=== PATIENT | male | born 1985 | race Caucasian/White ===

== ENCOUNTER 2019-03-04 08:11 | Inpatient (IN) | payer OTHER, SELFPAY ==
[~2019-03-04] VITALS: Ht 193 cm; Wt 118.5 kg
[2019-03-04] VITALS (8 sets, daily range): BP systolic 128–156; BP diastolic 72–87; O2SAT 92–96
[2019-03-04] MEDS: NS 1,000 ML IV SCH ×2 (01:32→14:00)
[2019-03-04] MEDS ORDERED: NS 1,000 ML IV ONE ×3 (08:30→10:30)
[2019-03-04 08:48] LABS: BASO # 0.1 10^3/uL (0.0-0.2); BASO % 0.4 % (0.0-1.0); HEMATOCRIT 45.5 % (42.0-52.0); HEMOGLOBIN 15.3 g/dl (13.5-17.5); LYMPH # 0.9 10^3/uL (1.5-5.0); LYMPH % 7.2 % (24.0-44.0); MEAN CORPUSCULAR HEMOGLOBIN 30.7 pg (27.0-33.0); MEAN CORPUSCULAR HGB CONC 33.6 g/dl (32.0-36.5); MEAN CORPUSCULAR VOLUME 91.4 fl (80.0-96.0); MONO # 0.7 10^3/uL (0.0-0.8); MONO % 5.6 % (0.0-5.0); NEUTROPHILS # 10.7 10^3/uL (1.5-8.5); NEUTROPHILS % 86.4 % (36.0-66.0); PLATELET COUNT, AUTOMATED 301 10^3/uL (150-450); RED BLOOD COUNT 4.98 10^6/uL (4.30-6.10); WHITE BLOOD COUNT 12.4 10^3/uL (4.0-10.0)
[2019-03-04] MEDS ORDERED: MORPHINE 4 MG/ML 1ML VIAL/SYRINGE (J2270) IV ONE (08:50)
[2019-03-04 09:27] LABS: ALBUMIN 3.8 GM/DL (3.2-5.2); ALT/SGPT 349 U/L (12-78); BILIRUBIN,DIRECT 6.1 MG/DL (0.0-0.2); BILIRUBIN,TOTAL 7.4 MG/DL (0.2-1.0); BLOOD UREA NITROGEN 10 MG/DL (7-18); CALCIUM LEVEL 9.9 MG/DL (8.5-10.1); CARBON DIOXIDE LEVEL 25 MEQ/L (21-32); CHLORIDE LEVEL 104 MEQ/L (98-107); CREATININE FOR GFR 0.94 MG/DL (0.70-1.30); GLOMERULAR FILTRATION RATE > 60.0 (>60); GLUCOSE, FASTING 139 MG/DL (70-100); POTASSIUM SERUM 3.9 MEQ/L (3.5-5.1); SODIUM LEVEL 137 MEQ/L (136-145); TOTAL PROTEIN 7.3 GM/DL (6.4-8.2)
[2019-03-04 09:28] LABS: LIPASE 15671 U/L (73-393)
[2019-03-04 09:51] LABS: AMYLASE 1696 U/L (25-115)
[2019-03-04] MEDS ORDERED: ISOVUE-370 76% 100ML VIAL (Q9967) As Ordered ONE (10:13)
[2019-03-04] MEDS ORDERED: HYDROMORPHONE HCL 0.5 MG/ 0.5 ML SYRINGE (J1170 PER 1) IV PRN ×2 (11:00→13:15)
--- NOTE | 2019-03-04 11:00 | REP ---
CT ABDOMEN AND PELVIS WITH IV WITHOUT ORAL CONTRAST: HISTORY: Gallstone pancreatitis suspected. No comparison imaging. CT CONTRAST DOSE: 100 mL of intravenous Isovue 370. 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 The lung bases are clear. The gallbladder is distended and shows diffuse gallbladder wall thickening and enhancement consistent with some degree of cholecystitis. Intrahepatic and extrahepatic bile ducts are prominent. The common bile duct measures 12 mm in greatest AP dimension in the pancreatic head. No definite CT evidence of cholelithiasis or choledocholithiasis is seen. There is some swelling in the pancreatic head and peripancreatic soft tissue fat shows infiltration consistent with pancreatitis. No intrapancreatic fluid collection is seen. No adrenal lesion is observed. The spleen is unremarkable. The kidneys enhance symmetrically and are morphologically intact. Both renal arteries are duplicated. A normal appendix is seen. No abdominal wall defect is observed. There is no evidence of ascites. Seminal vesicles, prostate, and urinary bladder are unremarkable. IMPRESSION: There is CT evidence of pancreatitis with intrahepatic and extrahepatic biliary dilation. Gallbladder wall thickening. Consistent with cholecystitis. CBD 1.2 cm. Electronically Signed by Andrés Cha MD 03/04/2019 03:33 P
[2019-03-04] MEDS ORDERED: PIPERACILLIN/TAZOBACTAM SOD 3.375 GM in D5W MINI-BAG PLUS 50 ML IV ONE (11:30)
[2019-03-04 12:15] LABS: APPEARANCE, URINE CLEAR (CLEAR); BACTERIA, URINE AUTO NEGATIVE (NEGATIVE); BILIRUBIN, URINE AUTO 2+ (NEGATIVE); BLOOD, URINE BLOOD NEGATIVE (NEGATIVE); COLOR, URINE AMBER (YELLOW); GLUCOSE, URINE (UA) AUTO NEGATIVE (NEGATIVE); KETONE, URINE AUTO TRACE mg/dL (NEGATIVE); LEUKOCYTE ESTERASE, URINE AUTO NEGATIVE (NEGATIVE); MUCUS, URINE SMALL (NEGATIVE); NITRITE, URINE AUTO NEGATIVE (NEGATIVE); PROTEIN, URINE AUTO NEGATIVE (NEGATIVE); RBC, URINE AUTO 2 /HPF (0-3); SQUAMOUS EPITHELIAL CELL UR AU 0 /HPF (0-6); WBC, URINE AUTO 1 /HPF (0-3)
[2019-03-04 12:32] LABS: SPECIFIC GRAVITY URINE AUTO >1.060 (1.002-1.035)
[2019-03-04] MEDS ORDERED: IBUP200T45 PO (12:57)
--- NOTE | 2019-03-04 13:04 | HPEPDOC ---
[facility] Medical History & Physical Date of Admission Mar 04, 2019 Date of Service: Mar 04, 2019 History and Physical CHIEF COMPLAINT: Abdominal pain HISTORY OF PRESENT ILLNESS: Patient is 33M with no significant PMH presented to the ER with complaints of worsening abdominal pain. Pain started last night initially on the R. side and eventually moved to the L. as well. Pain has been constant an generalized since then, worst in the epigastric region currently. Initial onset 7/10 then worst at 10/10 when lying on the R. side with no relieving factors. No associated symptoms including any fever, chills, nausea or vomiting. Family has also noted that patient had appeared more jaundice as well. He has had several doses of morphine in ER without any relief, subsequently improved after dilaudid was given and now reported to be more comfortable. Denies any other complaints currently apart from epigastric pain. PAST MEDICAL HISTORY: Refer to [facility] PAST SURGICAL HISTORY: None SOCIAL HISTORY: Smokes 6-7 cigarettes/day. Denies alcohol or illicit drug use. FAMILY HISTORY: Mother- DM and HTN ALLERGIES: Please see below. REVIEW OF SYSTEMS: 10 point review of system negative except as stated in [facility] HOME MEDICATIONS: Please see below. PHYSICAL EXAMINATION: General: mild distress, Alert, jaundice Eyes: b/l icterus HENT: Atraumatic, neck supple Cardiovascular: Normal rate, normal rhythm. Pulmonary: Clear to auscultation b/l, no wheezing GI: Soft, nondistended, generalized tenderness worst over epigastric. No rebound tenderness, no abdominal or flank hematoma. Skin: Warm and dry Neuro: CN grossly intact. No focal deficits. Strengths equal b/l. Psych: oriented x 3 LABORATORY DATA: See below. IMAGING: CT abdomen- CT FINDINGS: Digital preliminary communications analyst radiograph is unremarkable. The lung bases are clear. The gallbladder is distended and shows diffuse gallbladder wall thickening and enhancement consistent with some degree of cholecystitis. Intrahepatic and extrahepatic bile ducts are prominent. The common bile duct measures 12 mm in greatest AP dimension in the pancreatic head. No definite CT evidence of cholelithiasis or choledocholithiasis is seen. There is some swelling in the pancreatic head and peripancreatic soft tissue fat shows infiltration consistent with pancreatitis. No intrapancreatic fluid collection is seen. No adrenal lesion is observed. The spleen is unremarkable. The kidneys enhance symmetrically and are morphologically intact. Both renal arteries are duplicated. A normal appendix is seen. No abdominal wall defect is observed. There is no evidence of ascites. Seminal vesicles, prostate, and urinary bladder are unremarkable. IMPRESSION: There is CT evidence of pancreatitis with intrahepatic and extrahepatic biliary dilation. Gallbladder wall thickening. Consistent with cholecystitis. CBD 1.2 cm. MICROBIOLOGY: Please see below. ASSESSMENT AND PLAN: 1. Obstructive pancreatitis - CT scan with evidence of pancreatitis with intrahepatic and extrahepatic biliary dilation and GB distension. Jaundice and icteric. - Suspect gallstone pancreatitis but interestingly, no stones were noted on CT scan however. To obtain abdominal US. - Presented with elevated Lipase 15,600, Total bilirubin 7.4, AST/ALT/ALP 98/349/287. - serum calcium WNL. Obtain lipid panel. No history - GI consulted. Likely ERCP today or tomorrow. - Keep NPO. Pain control. Zofran for nausea. DVT ppx: SCD Code status: Full code Vital Signs Vital Signs Date Time Temp Pulse Resp B/P (MAP) Pulse Ox O2 Delivery O2 Flow Rate FiO2 03/04/19 11:18 18 Room Air 03/04/19 08:19 97.8 60 138/74 (95) 97 Laboratory Data Labs 24H Laboratory Tests 2 03/04/19 08:36: Immature Granulocyte % (Auto) 0.4, Neutrophils (%) (Auto) 86.4H, Lymphocytes (%) (Auto) 7.2L, Monocytes (%) (Auto) 5.6H, Eosinophils (%) (Auto) 0.0, Basophils (%) (Auto) 0.4, Neutrophils # (Auto) 10.7H, Lymphocytes # (Auto) 0.9L, Monocytes # (Auto) 0.7, Eosinophils # (Auto) 0.0, Basophils # (Auto) 0.1, Nucleated Red Blood Cells % (auto) 0.0, Urine Color GINA, Urine Appearance CLEAR, Urine pH 5.0, Urine Specific [place] >1.060H, Urine Protein NEGATIVE, Urine Glucose ( Auto)(UA) NEGATIVE, Urine Ketones (Auto) TRACEH, Urine Blood NEGATIVE, Urine Nitrite NEGATIVE, Urine Bilirubin 2+H, Urine Urobilinogen 4.0H, Urine Leukocyte Esterase (Auto) NEGATIVE, Urine WBC (Auto) 1, Urine RBC (Auto) 2, Urine Hyaline Casts (Auto) 0, Urine Bacteria (Auto) NEGATIVE, Urine Squamous Epithelial Cells 0, Urine Mucus (Auto) SMALL, Urine Sperm (Auto) , Anion Gap 8, Glomerular Filtration Rate > 60.0, Calcium Level 9.9, Total Bilirubin 7.4H, Direct Bilirubin 6.1H, Aspartate Amino Transf (AST/SGOT) 98H, Alanine Aminotransferase (ALT/SGPT) 349H, Alkaline Phosphatase 287H, Total Protein 7.3, Albumin 3.8, Albumin/Globulin Ratio 1.09, Amylase Level 1696H, Lipase 53385V CBC/BMP Laboratory Tests 03/04/19 08:36 Home Medications Scheduled PRN Ibuprofen (Ibu-200) 200 Mg Tablet, 800 MG PO Q6H PRN for PAIN Allergies Coded Allergies: No Known Allergies (Verified Allergy, Unknown, 03/04/19) A-FIB/CHADSVASC A-FIB History Current/History of A-Fib/PAF?: No CHRIS BROWN MD Mar 04, 2019 13:04
[2019-03-04 13:36] LABS: CHOLESTEROL LEVEL 207 MG/DL (<200); CHOLESTEROL RISK RATIO 9.857 (<5); HDL CHOLESTEROL 21 MG/DL (>40); LDL CHOLESTEROL 145 MG/DL (<100); NON-HDL-C 186 MG/DL; TRIGLYCERIDES LEVEL 206 MG/DL (<150)
--- NOTE | 2019-03-04 14:21 | REP ---
RIGHT UPPER QUADRANT SONOGRAPHY: HISTORY: Right upper quadrant pain. Elevated liver function studies. Elevated bilirubin. Comparison CT study March 04, 2019. FINDINGS: Scanning through the right upper quadrant of the abdomen demonstrates a distended gallbladder with diffuse wall thickening, 0.4 cm, and shadowing mobile echogenic gallstones. The CBD is slightly dilated at 0.7 cm. Liver parenchyma is somewhat hyperechoic diffusely correlate with fatty infiltration. No focal liver lesion or intrahepatic ductal dilation is observed. The pancreas is obscured by abdominal gas. There is no evidence of ascites or right renal abnormality. The right kidney measures 12.9 x 5.5 x 4.6 cm. IMPRESSION: Distended thick-walled gallbladder containing stones. CBD 0.7 cm mildly prominent. Electronically Signed by Andrés Cha MD 03/04/2019 03:44 P
[2019-03-04] MEDS: PIPERACILLIN/TAZOBACTAM SOD 3.375 GM in D5W MINI-BAG PLUS 50 ML IV SCH (19:59)
[2019-03-04] MEDS ORDERED: IBUPROFEN 400 MG TAB PO PRN (22:00)
[2019-03-05] VITALS (10 sets, daily range): BP systolic 120–142; BP diastolic 77–86; O2SAT 93–94
[2019-03-05] MEDS: PIPERACILLIN/TAZOBACTAM SOD 3.375 GM in D5W MINI-BAG PLUS 50 ML IV SCH ×4 (01:06→18:30)
[2019-03-05] MEDS: NS 1,000 ML IV SCH ×3 (04:43→18:30)
[2019-03-05 06:02] LABS: HEMOGLOBIN 13.9 g/dl (13.5-17.5); MEAN CORPUSCULAR HEMOGLOBIN 30.2 pg (27.0-33.0); MEAN CORPUSCULAR HGB CONC 33.1 g/dl (32.0-36.5); MEAN CORPUSCULAR VOLUME 91.1 fl (80.0-96.0); PLATELET COUNT, AUTOMATED 258 10^3/uL (150-450); RED BLOOD COUNT 4.61 10^6/uL (4.30-6.10); WHITE BLOOD COUNT 9.8 10^3/uL (4.0-10.0)
[2019-03-05 06:31] LABS: ALBUMIN 2.9 GM/DL (3.2-5.2); ALT/SGPT 263 U/L (12-78); BILIRUBIN,DIRECT 3.6 MG/DL (0.0-0.2); BILIRUBIN,TOTAL 5.5 MG/DL (0.2-1.0); BLOOD UREA NITROGEN 9 MG/DL (7-18); CALCIUM LEVEL 8.5 MG/DL (8.5-10.1); CARBON DIOXIDE LEVEL 25 MEQ/L (21-32); CHLORIDE LEVEL 108 MEQ/L (98-107); CREATININE FOR GFR 0.75 MG/DL (0.70-1.30); GLOMERULAR FILTRATION RATE > 60.0 (>60); GLUCOSE, FASTING 91 MG/DL (70-100); LIPASE 1438 U/L (73-393); POTASSIUM SERUM 3.5 MEQ/L (3.5-5.1); SODIUM LEVEL 139 MEQ/L (136-145); TOTAL PROTEIN 6.7 GM/DL (6.4-8.2)
--- NOTE | 2019-03-05 14:03 | IPNPDOC ---
Date Seen The patient was seen on 03/05/19. Progress Note SUBJECTIVE: Patient reported feeling improvement in abdominal pain today. Still appears jaundice. Leukocytosis resolved. WBC 12.4->9.8 T bili 7.4->5.5 LFTs also trending down. OBJECTIVE PHYSICAL EXAMINATION: General: mild distress, Alert, jaundice Eyes: b/l icterus HENT: Atraumatic, neck supple Cardiovascular: Normal rate, normal rhythm. Pulmonary: Clear to auscultation b/l, no wheezing GI: Soft, nondistended, generalized tenderness worst over epigastric. No rebound tenderness, no abdominal or flank hematoma. Skin: Warm and dry Neuro: CN grossly intact. No focal deficits. Strengths equal b/l. Psych: oriented x 3 LABORATORY DATA: See below. IMAGING: CT abdomen- CT FINDINGS: Digital preliminary speech and language specialist radiograph is unremarkable. The lung bases are clear. The gallbladder is distended and shows diffuse gallbladder wall thickening and enhancement consistent with some degree of cholecystitis. Intrahepatic and extrahepatic bile ducts are prominent. The common bile duct measures 12 mm in greatest AP dimension in the pancreatic head. No definite CT evidence of cholelithiasis or choledocholithiasis is seen. There is some swelling in the pancreatic head and peripancreatic soft tissue fat shows infiltration consistent with pancreatitis. No intrapancreatic fluid collection is seen. No adrenal lesion is observed. The spleen is unremarkable. The kidneys enhance symmetrically and are morphologically intact. Both renal arteries are duplicated. A normal appendix is seen. No abdominal wall defect is observed. There is no evidence of ascites. Seminal vesicles, prostate, and urinary bladder are unremarkable. IMPRESSION: There is CT evidence of pancreatitis with intrahepatic and extrahepatic biliary dilation. Gallbladder wall thickening. Consistent with cholecystitis. CBD 1.2 cm. Abd US- FINDINGS: Scanning through the right upper quadrant of the abdomen demonstrates a distended gallbladder with diffuse wall thickening, 0.4 cm, and shadowing mobile echogenic gallstones. The CBD is slightly dilated at 0.7 cm. Liver parenchyma is somewhat hyperechoic diffusely correlate with fatty infiltration. No focal liver lesion or intrahepatic ductal dilation is observed. The pancreas is obscured by abdominal gas. There is no evidence of ascites or right renal abnormality. The right kidney measures 12.9 x 5.5 x 4.6 cm. IMPRESSION: Distended thick-walled gallbladder containing stones. CBD 0.7 cm mildly prominent. MICROBIOLOGY: Please see below. ASSESSMENT AND PLAN: 1. Obstructive pancreatitis - CT scan with evidence of pancreatitis with intrahepatic and extrahepatic biliary dilation and GB distension. Jaundice and icteric. - Suspect gallstone pancreatitis but interestingly, no stones were noted on CT scan however. - CT scan show 12 mm CBD but US 7mm with - Presented with elevated Lipase 15,600, Total bilirubin 7.4, AST/ALT/ALP 98/349/287. - LFT and lipase trending down. - serum calcium WNL. TG 206. - GI following. Currently planned for ERCP today at this time. Patient to get MRCP. - Stone may have passed? - Keep NPO. Pain control. Zofran for nausea. - surgery consult to evaluate for cholecystectomy. DVT ppx: SCD Code status: Full code VS, I&O, 24H, Fishbone Vital Signs/I&O Vital Signs Date Time Temp Pulse Resp B/P (MAP) Pulse Ox O2 Delivery O2 Flow Rate FiO2 03/05/19 12:00 99.6 81 20 124/77 (93) 94 Room Air I&O- Last 24 Hours up to 6 AM 03/05/19 06:00 Intake Total 3425 ml Output Total 0 ml Balance 3425 ml Laboratory Data 24H LABS Laboratory Tests 2 03/05/19 05:32: Nucleated Red Blood Cells % (auto) 0.0, Anion Gap 6L, Glomerular Filtration Rate > 60.0, Calcium Level 8.5, Total Bilirubin 5.5H, Direct Bilirubin 3.6H, Aspartate Amino Transf (AST/SGOT) 77H, Alanine Aminotransferase (ALT/SGPT) 263H, Alkaline Phosphatase 246H, Total Protein 6.7, Albumin 2.9#L, Albumin/Globulin Ratio 0.76L, Lipase 1438H CBC/BMP Laboratory Tests 03/05/19 05:32 CHRIS BROWN MD Mar 05, 2019 14:03
--- NOTE | 2019-03-05 17:44 | REPVR ---
PROCEDURE INFORMATION: Exam: MR Abdomen Without Contrast Exam date and time: 03/05/2019 4:56 PM Age: 33 years old Clinical history: Abnormal findings; Abnormal radiologic finding of the abdomen; Radiologic exam and body structure: CT abd pelvis; Abdominal tenderness and nausea; Additional info: Cbd stone eval TECHNIQUE: Imaging protocol: MR of the abdomen without contrast. 3D rendering: MIP reconstructed images were created and reviewed. COMPARISON: GALLBLADDER US 03/04/2019 1:03 PM COMPARISON MORE: CT ABD/PEL W/IV CONTRAST ONLY 03/04/2019 10:18:38 AM FINDINGS: Limitations: Lack of intravenous contrast material limits evaluation of the vascular and visceral structures. Liver: Unremarkable as visualized. Gallbladder and bile ducts: Multiple gallstones. Abnormal gallbladder distention. Diffuse gallbladder wall thickening. Stones within the cystic duct. Common bile duct measures up to 4 mm in diameter. Common hepatic duct measures up to 2 mm in diameter. No evidence of choledocholithiasis. Mild pericholecystic edema. Pancreas: Mild peripancreatic edema. No pancreatic ductal dilatation. Spleen: Incompletely imaged. No splenomegaly. Adrenals: Unremarkable. No mass. Kidneys and ureters: Incompletely imaged. Unremarkable as visualized. No hydronephrosis. Stomach and bowel: Unremarkable. Intraperitoneal space: No fluid collection. Arteries: No abdominal aortic aneurysm. Bones/joints: Unremarkable. Soft tissues: Unremarkable. IMPRESSION: 1. Cholelithiasis and cystic duct stones. Abnormal gallbladder distention, diffuse gallbladder wall thickening, and mild pericholecystic fluid. Findings are suggestive of acute cholecystitis. 2. Acute edematous pancreatitis. 3. No evidence of choledocholithiasis. Electronically signed by: Gina Cunha On 03/05/2019 17:44:18 PM
[2019-03-05] MEDS: FLUTICASONE PROP 0.05% NASAL SPRAY 16 GM (FLONASE) NARES SCH (18:30)
[2019-03-05] MEDS ORDERED: MORPHINE 2 MG/ML 1ML VIAL (J2270) IV PRN (19:15)
[2019-03-06] VITALS (7 sets, daily range): BP systolic 117–133; BP diastolic 61–78
[2019-03-06] MEDS: PIPERACILLIN/TAZOBACTAM SOD 3.375 GM in D5W MINI-BAG PLUS 50 ML IV SCH ×5 (00:21→23:59)
[2019-03-06] MEDS: NS 1,000 ML IV SCH ×2 (00:22→09:15)
--- NOTE | 2019-03-06 02:17 | CR.PDOC ---
General Surgery Consultation Date of Consultation 03/06/19 History and Physical CONSULT REPORT FOR: Dr. Johnson (hospitalist service) REASON FOR CONSULTATION: abdominal pain, cholecystitis, pancreatitis HISTORY OF PRESENT ILLNESS: PAST MEDICAL HISTORY: 1. denies any significant chronic medical problems. PAST SURGICAL HISTORY: INCLUDES: 1. none PREVIOUS ANESTHESIA REACTIONS: none ALLERGIES: Please see below. FAMILY HISTORY: noncontributory HOME MEDICATIONS: Please see below. REVIEW OF SYSTEMS: GENERAL: [Denies chills, reports weight gain, reports feeling febrile yesterday]. HEENT: [Denies blurred vision and double vision. Denies ear symptoms. Denies hoarseness]. NECK: Denies any neck pain]. CARDIOVASCULAR: [Denies chest pain and palpitations]. MUSCULOSKELETAL: [Denies arthralgias, back pain and thrombophlebitis]. SKIN: [Denies rash]. NEUROLOGIC: [Denies headache, stroke and transient ischemic attack]. PSYCHIATRIC: [Denies anxiety and depression]. ENDOCRINE: [Denies thyroid disease]. HEMATOLOGY/ONCOLOGY: [Denies bleeding or clotting disorder]. HEART: [Denies any chest pains, palpitations, paroxysmal dyspnea, orthopnea]. PULMONARY: [Denies chronic cough, dyspnea and wheezing]. GASTROINTESTINAL: [Denies rectal bleeding, family history of colon cancer, constipation, diarrhea, dysphagia, heartburn and jaundice]. GENITOURINARY: [Denies dysuria, frequency, hematuria and nocturia]. ENDOCRINE: [Denies polydipsia, polyphagia, polyuria, heat or cold intolerance]. INFECTIOUS: [Denies any recent upper respiratory tract infection, UTI, need for use of antibiotics]. NUTRITION: [Reports good appetite]. PHYSICAL EXAMINATION: VITALS SIGNS: Please see below. GENERAL APPEARANCE:[Patient seen, laying in bed, awake, alert, and oriented. Comfortable, in no acute distress]. SKIN: [Warm and moist]. HEENT: [Normocephalic, atraumatic. [place] palpebral conjunctiva, anicteric sclerae. Lips and mucosa appear moist]. NECK: [Supple, no thyromegaly. No obvious jugular venous distention]. LUNGS: [Clear to auscultation bilaterally. No wheezing appreciated]. HEART: [No chest wall abnormalities. Regular rate and rhythm with no murmurs appreciated]. ABDOMEN: Abdomen is , soft, . [No hepatosplenomegaly. No umbilical or groin herniations, nondistended. No noticeable rebound or guarding. No grimacing with palpation. No rebound tenderness. No masses appreciated]. EXTREMITIES: [Extremities have no deformities. No edema identified] ANCILLARIES: . LABORATORY DATA: Please see below. IMAGING STUDIES: US abdomen Distended thick-walled gallbladder containing stones. CBD 0.[address] scan abdomen and pelvis There is CT evidence of pancreatitis with intrahepatic and extrahepatic biliary dilation. Gallbladder wall thickening. Consistent with cholecystitis. CBD 1.2 cm. MRCP 1. Cholelithiasis and cystic duct stones. Abnormal gallbladder distention, diffuse gallbladder wall thickening, and mild pericholecystic fluid. Findings are suggestive of acute cholecystitis. 2. Acute edematous pancreatitis. 3. No evidence of choledocholithiasis IMPRESSION AND PLAN: Cholelithiasis with acute cholecystitis Biliary acute pancreatitis Vital Signs Vital Signs Date Time Temp Pulse Resp B/P (MAP) Pulse Ox O2 Delivery O2 Flow Rate FiO2 03/06/19 00:00 98.3 84 18 125/65 (85) 96 Room Air I&Os I&O- Last 24 Hours up to 6 AM 03/06/19 06:00 Intake Total 125 ml Output Total 900 ml Balance -775 ml Laboratory Data Labs 24H Laboratory Tests 2 03/05/19 05:32: Nucleated Red Blood Cells % (auto) 0.0, Anion Gap 6L, Glomerular Filtration Rate > 60.0, Calcium Level 8.5, Total Bilirubin 5.5H, Direct Bilirubin 3.6H, Aspartate Amino Transf (AST/SGOT) 77H, Alanine Aminotransferase (ALT/SGPT) 263H, Alkaline Phosphatase 246H, Total Protein 6.7, Albumin 2.9#L, Albumin/Globulin Ratio 0.76L, Lipase 1438H CBC/BMP Laboratory Tests 03/05/19 05:32 Home Medications Scheduled PRN Ibuprofen (Ibu-200) 200 Mg Tablet, 800 MG PO Q6H PRN for PAIN, (Reported) Allergies Coded Allergies: No Known Allergies (Verified Allergy, Unknown, 03/04/19) DAGMAR MIRAMONTES MD Mar 06, 2019 02:17
[2019-03-06 05:51] LABS: HEMATOCRIT 37.1 % (42.0-52.0); HEMOGLOBIN 12.8 g/dl (13.5-17.5); MEAN CORPUSCULAR HEMOGLOBIN 31.2 pg (27.0-33.0); MEAN CORPUSCULAR HGB CONC 34.5 g/dl (32.0-36.5); MEAN CORPUSCULAR VOLUME 90.5 fl (80.0-96.0); PLATELET COUNT, AUTOMATED 235 10^3/uL (150-450); WHITE BLOOD COUNT 10.9 10^3/uL (4.0-10.0)
[2019-03-06 06:13] LABS: ALBUMIN 2.9 GM/DL (3.2-5.2); ALT/SGPT 206 U/L (12-78); BILIRUBIN,DIRECT 1.6 MG/DL (0.0-0.2); BILIRUBIN,TOTAL 3.1 MG/DL (0.2-1.0); BLOOD UREA NITROGEN 9 MG/DL (7-18); CALCIUM LEVEL 8.5 MG/DL (8.5-10.1); CARBON DIOXIDE LEVEL 24 MEQ/L (21-32); CHLORIDE LEVEL 107 MEQ/L (98-107); CREATININE FOR GFR 0.68 MG/DL (0.70-1.30); GLOMERULAR FILTRATION RATE > 60.0 (>60); GLUCOSE, FASTING 77 MG/DL (70-100); POTASSIUM SERUM 3.2 MEQ/L (3.5-5.1); SODIUM LEVEL 139 MEQ/L (136-145); TOTAL PROTEIN 6.9 GM/DL (6.4-8.2)
[2019-03-06] MEDS: FLUTICASONE PROP 0.05% NASAL SPRAY 16 GM (FLONASE) NARES SCH (09:15)
--- NOTE | 2019-03-06 18:02 | IPNPDOC ---
Date Seen The patient was seen on 03/06/19. Progress Note SUBJECTIVE: Patient appeared comfortable and denies pain today. Started on diet and tolerating. T bili and LFT continues to trend down. Jaundice had improved. No acute events reported overnight. OBJECTIVE PHYSICAL EXAMINATION: General: no acute distress, Alert Eyes: EOMI, ABEL HENT: Atraumatic Cardiovascular: Normal rate, normal rhythm. Pulmonary: Clear to auscultation b/l, no wheezing GI: Soft, nondistended, nontender Skin: Warm and dry Neuro: CN grossly intact. No focal deficits. Strengths equal b/l. Psych: oriented x 3 LABORATORY DATA: See below. IMAGING: CT abdomen- CT FINDINGS: Digital preliminary lace and textiles restorer radiograph is unremarkable. The lung bases are clear. The gallbladder is distended and shows diffuse gallbladder wall thickening and enhancement consistent with some degree of cholecystitis. Intrahepatic and extrahepatic bile ducts are prominent. The common bile duct measures 12 mm in greatest AP dimension in the pancreatic head. No definite CT evidence of cholelithiasis or choledocholithiasis is seen. There is some swelling in the pancreatic head and peripancreatic soft tissue fat shows infiltration consistent with pancreatitis. No intrapancreatic fluid collection is seen. No adrenal lesion is observed. The spleen is unremarkable. The kidneys enhance symmetrically and are morphologically intact. Both renal arteries are duplicated. A normal appendix is seen. No abdominal wall defect is observed. There is no evidence of ascites. Seminal vesicles, prostate, and urinary bladder are unremarkable. IMPRESSION: There is CT evidence of pancreatitis with intrahepatic and extrahepatic biliary dilation. Gallbladder wall thickening. Consistent with cholecystitis. CBD 1.2 cm. Abd US- FINDINGS: Scanning through the right upper quadrant of the abdomen demonstrates a distended gallbladder with diffuse wall thickening, 0.4 cm, and shadowing mobile echogenic gallstones. The CBD is slightly dilated at 0.7 cm. Liver parenchyma is somewhat hyperechoic diffusely correlate with fatty infiltration. No focal liver lesion or intrahepatic ductal dilation is observed. The pancreas is obscured by abdominal gas. There is no evidence of ascites or right renal abnormality. The right kidney measures 12.9 x 5.5 x 4.6 cm. IMPRESSION: Distended thick-walled gallbladder containing stones. CBD 0.7 cm mildly prominent. MICROBIOLOGY: Please see below. ASSESSMENT AND PLAN: 1. Obstructive pancreatitis - Presented with elevated Lipase 15,600, Total bilirubin 7.4, AST/ALT/ALP 98/349/287. - LFT and lipase trending down. - serum calcium WNL. TG 206. - No evidence of choledocholithiasis on MRCP. No plan for ERCP at this time. - Resume diet. Surgery consulted, likely will get cholecystectomy as outpatient once LFTs normalize. - Pain control. Zofran for nausea. DVT ppx: SCD Code status: Full code VS, I&O, 24H, Fishbone Vital Signs/I&O Vital Signs Date Time Temp Pulse Resp B/P (MAP) Pulse Ox O2 Delivery O2 Flow Rate FiO2 03/06/19 16:00 98.4 68 18 118/72 (87) 97 Room Air I&O- Last 24 Hours up to 6 AM 03/06/19 06:00 Intake Total 1525 ml Output Total 900 ml Balance 625 ml Laboratory Data 24H LABS Laboratory Tests 2 03/06/19 05:15: Nucleated Red Blood Cells % (auto) 0.0, Anion Gap 8, Glomerular Filtration Rate > 60.0, Calcium Level 8.5, Total Bilirubin 3.1H, Direct Bilirubin 1.6H, Aspartate Amino Transf (AST/SGOT) 69H, Alanine Aminotransferase (ALT/SGPT) 206H, Alkaline Phosphatase 207H, Total Protein 6.9, Albumin 2.9L, Albumin/Globulin Ratio 0.73L CBC/BMP Laboratory Tests 03/06/19 05:15 CHRIS BROWN MD Mar 06, 2019 18:02
[2019-03-07 04:00] VITALS: BP 128/78
[2019-03-07 05:39] LABS: HEMATOCRIT 41.2 % (42.0-52.0); HEMOGLOBIN 13.3 g/dl (13.5-17.5); MEAN CORPUSCULAR HEMOGLOBIN 30.6 pg (27.0-33.0); MEAN CORPUSCULAR HGB CONC 32.3 g/dl (32.0-36.5); MEAN CORPUSCULAR VOLUME 94.7 fl (80.0-96.0); PLATELET COUNT, AUTOMATED 223 10^3/uL (150-450); RED BLOOD COUNT 4.35 10^6/uL (4.30-6.10); WHITE BLOOD COUNT 8.7 10^3/uL (4.0-10.0)
[2019-03-07] MEDS: PIPERACILLIN/TAZOBACTAM SOD 3.375 GM in D5W MINI-BAG PLUS 50 ML IV SCH ×2 (05:46→12:15)
[2019-03-07 05:59] LABS: ALBUMIN 2.7 GM/DL (3.2-5.2); ALT/SGPT 168 U/L (12-78); BILIRUBIN,DIRECT 0.8 MG/DL (0.0-0.2); BILIRUBIN,TOTAL 1.5 MG/DL (0.2-1.0); BLOOD UREA NITROGEN 8 MG/DL (7-18); CALCIUM LEVEL 8.9 MG/DL (8.5-10.1); CARBON DIOXIDE LEVEL 27 MEQ/L (21-32); CHLORIDE LEVEL 110 MEQ/L (98-107); CREATININE FOR GFR 0.65 MG/DL (0.70-1.30); GLOMERULAR FILTRATION RATE > 60.0 (>60); GLUCOSE, FASTING 97 MG/DL (70-100); POTASSIUM SERUM 3.5 MEQ/L (3.5-5.1); SODIUM LEVEL 142 MEQ/L (136-145)
[2019-03-07 08:00] VITALS: BP 117/62
[2019-03-07] MEDS: FLUTICASONE PROP 0.05% NASAL SPRAY 16 GM (FLONASE) NARES SCH (08:32)
--- NOTE | 2019-03-07 09:10 | IPN ---
DATE: 03/07/2019 Mahamed is here with biliary stone pancreatitis which is resolving. He spontaneously passed a biliary stone. His MRCP is negative. His enzymes are all improving. His appetite is better. He is looking forward to discharge. He is afebrile. Vital signs are stable. Lungs clear. Heart regular rhythm. Abdomen soft, nontender. No peripheral edema. Labs: Potassium 3.5, creatinine 0.6, bilirubin down to 1.5, alkaline phosphatase down to 1.82. CBC is unremarkable. White count 8.7. IMPRESSION: Biliary stone pancreatitis. PLAN: Continue the Zosyn for now. He is taking a regular diet. If his labs look better tomorrow, we could possibly discharge. Dr. Banks has seen him already and plans outpatient evaluation for a cholecystectomy.
[2019-03-07] MEDS ORDERED: KEFL500C17 PO (10:55)
--- NOTE | 2019-03-07 11:56 | IPN ---
DATE: 03/04/2019 After rounds, Mahamed decided he wanted to be discharged. His mother wanted him to go home as well. I met with them and addressed my concern about his being discharged with abnormal liver function tests, which are trending down but still not normalized. I advised another day of IV antibiotics. They declined this and they accepted the risks associated with this. The patient will be discharged on Keflex 500 mg every 8 hours times seven days, Tylenol as needed for pain. Followup with Dr. Banks as an outpatient. The hospitalist secretaries will arrange primary care provider.
[2019-03-07 12:00] VITALS: BP 124/60
--- NOTE | 2019-03-10 16:41 | DSES ---
DATE OF ADMISSION: 03/04/2019 DATE OF DISCHARGE: 03/07/2019 PRINCIPAL DIAGNOSIS: Pancreatitis secondary to biliary stone. HISTORY: Mahamed Kee was admitted with pancreatitis. Details as per history and physical on admission. HOSPITAL COURSE: He was admitted to a medical bed, started on Zosyn. He had gallbladder ultrasound on admission that showed distended gallbladder containing stones, common bile duct mildly prominent. Abdominal MRI scan showed no choledocholithiasis. He had cholelithiasis and cystic duct stones and acute edematous pancreas. His enzymes were falling on a daily basis, and I expected he was going to stay until 03/08/2019, but he insisted on discharge on 03/07/2019 after discussion of risks, which he and his mother accepted. His labs have already been dictated. DISPOSITION: He was discharged home against medical advice. He will followup with his primary care provider in a week. His medication was Keflex 500 mg three times a day for 7 days and continue ibuprofen for pain. Activity as tolerated. Diet as tolerated.
== END 2019-03-07 15:41 | disposition home or self-care (01) ==
LOC: EDBD 08:11 → M ED 08:11 → M ED INP 12:23 → M PCU 18:50
PROVIDERS: ADMIT Student in an Organized Health Care Education/Training Program; ATTEND Student in an Organized Health Care Education/Training Program
DX: K80.20 Calculus of gallbladder without cholecystitis without obstruction (principal); K85.90 Acute pancreatitis without necrosis or infection, unspecified; F17.210 Nicotine dependence, cigarettes, uncomplicated

== ENCOUNTER 2019-03-12 03:34 | Observation (INO) | payer MEDICAID ==
[~2019-03-12] VITALS: Ht 193 cm; Wt 116.1 kg
[~2019-03-12 03:34] MED LIST: IBUP200T45 PO; KEFL500C17 PO
[2019-03-12 04:30] LABS: BASO # 0.1 10^3/uL (0.0-0.2); BASO % 0.8 % (0.0-1.0); EOS # 0.1 10^3/uL (0.0-0.5); HEMATOCRIT 45.5 % (42.0-52.0); LYMPH # 1.9 10^3/uL (1.5-5.0); LYMPH % 18.7 % (24.0-44.0); MEAN CORPUSCULAR HEMOGLOBIN 30.2 pg (27.0-33.0); MEAN CORPUSCULAR VOLUME 91.7 fl (80.0-96.0); MONO # 0.6 10^3/uL (0.0-0.8); MONO % 6.1 % (0.0-5.0); NEUTROPHILS # 7.5 10^3/uL (1.5-8.5); PLATELET COUNT, AUTOMATED 363 10^3/uL (150-450); RED BLOOD COUNT 4.96 10^6/uL (4.30-6.10); WHITE BLOOD COUNT 10.2 10^3/uL (4.0-10.0)
[2019-03-12 05:03] LABS: ALBUMIN 3.7 GM/DL (3.2-5.2); BILIRUBIN,DIRECT 1.2 MG/DL (0.0-0.2); BILIRUBIN,TOTAL 1.8 MG/DL (0.2-1.0); TOTAL PROTEIN 8.1 GM/DL (6.4-8.2)
[2019-03-12] MEDS ORDERED: KETOROLAC 30 MG/ML VIAL (J1885) IV ONE (05:30)
--- NOTE | 2019-03-12 07:45 | REP ---
Clinical: Right upper quadrant pain. Technique: Real time reeder scale ultrasound examination using curved array transducer. Findings: Gallbladder is moderately distended and demonstrates multiple mobile gallstones. No pericholecystic fluid is appreciated. The common bile duct is upper limits of normal at 7 mm diameter. Liver and visualized pancreas are normal in contour, size, echogenicity without focal hepatic or pancreatic lesion identified. Right kidney is normal in reniform shape without hydronephrosis and measures 12.2 x 4.6 x 5.0 cm. Impression: Cholelithiasis. Findings are equivocal for acute cholecystitis and require correlation and observation. Electronically Signed by Alan Aguilar MD 03/12/2019 07:37 A
[2019-03-12] MEDS ORDERED: CEPH500C PO (09:10)
[2019-03-12] MEDS ORDERED: LR 1,000 ML IV SCH (09:59)
[2019-03-12] MEDS ORDERED: NORCO, ANEXSIA 5/325MG TABLET (HYDROcodone/ACETAMINOPHEN) PO PRN (10:00)
[2019-03-12] MEDS ORDERED: ONDANSETRON 4MG/2ML VIAL (J2405) IV PRN (10:00)
[2019-03-12] MEDS ORDERED: ACETAMINOPHEN TAB 650MG DOSE (2X325MG) PO PRN (10:00)
[2019-03-12] MEDS ORDERED: KETOROLAC 30 MG/ML VIAL (J1885) IV PRN (10:00)
[2019-03-12 10:25] VITALS: BP 120/66
[2019-03-12 14:00] VITALS: BP 120/67
[2019-03-12 16:15] LABS: ALBUMIN 3.3 GM/DL (3.2-5.2); BILIRUBIN,DIRECT 0.9 MG/DL (0.0-0.2); BILIRUBIN,TOTAL 1.3 MG/DL (0.2-1.0); TOTAL PROTEIN 7.4 GM/DL (6.4-8.2)
[2019-03-12 18:00] VITALS: BP 118/65
--- NOTE | 2019-03-13 13:41 | IPN ---
DATE: 03/12/2019 HISTORY: The patient presented to the emergency department (ED) this morning with an upper abdominal pain. He has cholelithiasis and had recently been admitted with presumed choledocholithiasis resulting in elevated liver function tests and biliary pancreatitis. He was discharged on 03/07/2019 on Keflex for antibiotic coverage and is scheduled for a laparoscopic cholecystectomy on 03/21/[address] Banks. Because his liver function tests (LFTs) were still elevated this morning, he was placed on observation status to see if his pain would resolve and to follow his LFTs. Vital signs show that he has been afebrile since placement on observation with a pulse in the 50s to 60, and his blood pressure is excellent. INTAKE AND OUTPUT: Intake and output. He has been taking some clear liquids without difficulty. He has had no nausea or vomiting. PHYSICAL EXAM: The patient reports that he has no pain at this time. He is lying quietly on the hospital bed looking comfortable. Heart and lung exam is unremarkable. The abdomen is mildly obese but soft and nontender. LABORATORY STUDIES: His liver function tests were repeated this afternoon and show a total bilirubin of 1.3, direct of 0.9, AST of 262, ALT of 322, and an alkaline phosphatase of 441. His total and direct bilirubin are both down slightly and the liver enzymes are about the same. IMPRESSION: The patient has still an elevation of his liver function tests, though his pain has resolved. It may be that he has a remaining common bile duct stone, though he had a magnetic resonance cholangiopancreatography (MRCP) when he was in the hospital last week that showed no evidence of choledocholithiasis. I suspect he has a small stone or stones. It may be that his stone has passed and his liver function tests have just not returned toward normal yet. PLAN: I discussed with the patient the option of staying in the hospital to continue observation of his liver function tests and advance his diet. It may be that we would be able to proceed with surgery at an earlier date than scheduled if he remained in the hospital. Unfortunately, we do not have a bolt sorter available right at this time given the holiday for an endoscopic retrograde cholangiopancreatography (ERCP) if that became necessary. We discussed the risks of recurrent pancreatitis or cholangitis if he has a persisting stone. It may be that he will tolerate a relatively bland or low-fat diet well and not have any return of his discomfort. After some discussion, he has elected to go home and I will discharge him tonight. I told him that I would check with Dr. Banks on 03/17/2019, to see if he has any recommended changes in the plan for surgery next Sunday. The patient was counseled that if he has a return of significant pain or notes any other problems he should return to emergency department for possible readmission. DANA
--- NOTE | 2019-03-13 15:02 | HPE ---
DATE OF ADMISSION: 03/12/2019 REASON FOR PLACEMENT ON OBSERVATION: Upper abdominal pain with elevated liver function tests. HISTORY OF THE PRESENT ILLNESS: The patient is a pleasant, 33-year-old who was admitted to the hospital on 03/04/2019 with abdominal pain with jaundice and marked elevation of his liver function tests. He was found to have a markedly elevated amylase and lipase at 1700 and 16,000, respectively. His liver function tests gradually returned toward normal but had not returned to normal at the time of his discharge. He did have an magnetic resonance cholangiopancreatography (MRCP) that was interpreted as showing no evidence of choledocholithiasis. He was discharged to followup with Dr. Banks and apparently is scheduled for a laparoscopic cholecystectomy on 03/21/2019. The patient reports that he was feeling okay and eating well. He is taking Keflex as ordered at discharge. The patient reports that at about 11 o'clock in the evening on 03/11/2019 he noted the onset again of some right upper quadrant and epigastric pain. This was fairly sudden and quite severe. He initially monitored this at home but then presented to the emergency department in the bolt threader hours of 03/12/2019. On laboratory studies, he was found to have a total bilirubin of 1.8, direct of 1.2, AST 233, ALT 244, and alkaline phosphatase of 469. He continued to have some right upper quadrant discomfort and I was consulted and he is now placed on observation status. MEDICATIONS: The patient's only medication was the Keflex 500 mg three times daily and he has been using some ibuprofen as needed basis for pain. ALLERGIES: The patient has NO KNOWN DRUG ALLERGIES. SURGICAL HISTORY: Negative. MEDICAL HISTORY: Shows no chronic or active medical issues other than the recent gallstone issues. FAMILY HISTORY: His mother apparently has diabetes and hypertension. SOCIAL HISTORY: The patient does smoke about a third of a pack of cigarettes a day, but denies any alcohol or drug use. His review of systems reveals no history of chest pain or palpitations. He has no cough, wheezing or sputum production. He has not noticed any significant weight gain or weight loss. He denies fevers or chills. He has not noticed any jaundice at this time. He denies any urinary issues or any orthopedic issues. PHYSICAL EXAMINATION: Reveals a young man lying quietly on the hospital bed. He is alert and oriented. He has been most recently afebrile. His pulse since presentation has been in the 50s to 60 and his blood pressure is good. Skin is warm and dry. Sclerae are anicteric. Mucous membranes are moist. The neck is supple without mass or bruit. Heart exam shows a regular rate and rhythm. The lungs are clear. Abdomen is perhaps mildly obese. He has bowel sounds present. There is no tympany to percussion and no tenderness to percussion. The abdomen is soft throughout and there is no significant tenderness noted on abdominal exam. He has no evidence of hernia. Lower extremities are without edema and he has palpable radial and pedal pulses. His laboratory studies from the emergency department showed a white count of 10 with a differential showing 73% neutrophils, 19% lymphocytes and 6% monocytes. Hemoglobin 15 with a hematocrit of 46 and platelet count was 363. Liver function tests are as noted in the history of the present illness, and his electrolytes are otherwise significant only for a slight elevation of the glucose 238. Imaging included a gallbladder ultrasound done in the emergency department. This revealed a moderately distended gallbladder with multiple mobile stones. There was no pericholecystic fluid. The common bile duct was reported to be 7 mm in diameter. IMPRESSION: The patient is a 33-year-old man with known gallstones who was in the hospital and discharged 5 days ago with markedly elevated liver function tests with obstructive jaundice and elevations of his amylase and lipase. His numbers had not returned to normal by the time he left the hospital, though an MRCP showed no evidence of choledocholithiasis. He now presents with a recurrence of his pain with elevated liver function tests. Currently, he reports no pain. He has had no nausea or vomiting. I think it is most likely that he has a common bile duct stone that he has either just past, which caused the pain, or perhaps it is still within his common bile duct and has not passed through completely. PLAN: The patient will be placed on observation. His pain has resolved but his liver function tests are troubling as the possibility of persistent choledocholithiasis. He was counseled that we would keep him and recheck his liver function tests at 4 o'clock in the afternoon, which would be 12 hours from the admission labs, to see if these are going up or down or staying the same. We can decide if they are worsening to repeat his MRI. We do not have gastroenterology coverage today. The patient is already scheduled for a cholecystectomy on 03/21/2019, but we will need to sort out whether he has common duct stones that would need to be treated as well. The patient was counseled for the placement on observation and is agreeable. I will check back with him later in the day after his repeat LFTs are available.
== END 2019-03-12 19:30 | disposition home or self-care (01) ==
LOC: M ED 03:34 → M ED INP 03:35 → M MSPAV 10:42
PROVIDERS: ADMIT Surgery; ATTEND Surgery
DX: R94.5 Abnormal results of liver function studies (principal); R10.10 Upper abdominal pain, unspecified; K80.10 Calculus of gallbladder with chronic cholecystitis without obstruction; Z79.2 Long term (current) use of antibiotics; F17.210 Nicotine dependence, cigarettes, uncomplicated
CPT/HCPCS: 36415; 76705; 80047; 80076; 83690; 85025; 93041; 96374; 99285; J1885

== ENCOUNTER 2019-03-16 05:01 | Emergency (ER) | payer MEDICAID ==
[~2019-03-16] VITALS: Ht 193 cm; Wt 118.2 kg
[~2019-03-16 05:01] MED LIST changes: +CEPH500C PO
[2019-03-16] MEDS ORDERED: MORPHINE 4 MG/ML 1ML VIAL/SYRINGE (J2270) IV ONE (05:30)
[2019-03-16] MEDS ORDERED: NS 1,000 ML IV ONE ×2 (05:30→08:30)
[2019-03-16 05:50] LABS: BASO # 0.1 10^3/uL (0.0-0.2); BASO % 0.5 % (0.0-1.0); EOS % 0.2 % (0.0-3.0); HEMATOCRIT 47.4 % (42.0-52.0); HEMOGLOBIN 15.7 g/dl (13.5-17.5); LYMPH % 8.7 % (24.0-44.0); MEAN CORPUSCULAR HEMOGLOBIN 30.3 pg (27.0-33.0); MEAN CORPUSCULAR HGB CONC 33.1 g/dl (32.0-36.5); MEAN CORPUSCULAR VOLUME 91.5 fl (80.0-96.0); MONO # 0.3 10^3/uL (0.0-0.8); NEUTROPHILS # 9.9 10^3/uL (1.5-8.5); NEUTROPHILS % 87.2 % (36.0-66.0); PLATELET COUNT, AUTOMATED 304 10^3/uL (150-450); RED BLOOD COUNT 5.18 10^6/uL (4.30-6.10); WHITE BLOOD COUNT 11.4 10^3/uL (4.0-10.0)
[2019-03-16 06:43] LABS: ALBUMIN 3.2 GM/DL (3.2-5.2); ALT/SGPT 851 U/L (12-78); BILIRUBIN,DIRECT 4.3 MG/DL (0.0-0.2); BILIRUBIN,TOTAL 5.3 MG/DL (0.2-1.0); BLOOD UREA NITROGEN 14 MG/DL (7-18); CALCIUM LEVEL 8.4 MG/DL (8.5-10.1); CARBON DIOXIDE LEVEL 23 MEQ/L (21-32); CHLORIDE LEVEL 110 MEQ/L (98-107); CREATININE FOR GFR 0.78 MG/DL (0.70-1.30); GLOMERULAR FILTRATION RATE > 60.0 (>60); GLUCOSE, FASTING 133 MG/DL (70-100); LIPASE 28872 U/L (73-393); SODIUM LEVEL 142 MEQ/L (136-145); TOTAL PROTEIN 6.8 GM/DL (6.4-8.2)
[2019-03-16 09:21] VITALS: BP 124/77
== END 2019-03-16 09:24 | disposition short-term general hospital (02) ==
LOC: M ED 05:01
DX: K85.10 Biliary acute pancreatitis without necrosis or infection (principal); K81.0 Acute cholecystitis
CPT/HCPCS: 80048; 80076; 83605; 83690; 85025; 96361; 96374; 99284; J2270

== ENCOUNTER 2019-03-21 09:30 | Day surgery (SDC) | payer MEDICAID ==
[2019-03-21] VITALS (8 sets, daily range): BP systolic 117–131; BP diastolic 66–77
[~2019-03-21] VITALS: Ht 193 cm; Wt 110.7 kg
[~2019-03-21 09:30] MED LIST changes: +AMPICILLIN SOD/SULBACTAM SOD 3 GM in D5W MINI-BAG PLUS 100 ML IV ONE; +LR 1,000 ML IV ONE
[2019-03-21] MEDS ORDERED: CONRAY-60 60% 50ML VIAL (Q9961) As Ordered ONE ×3 (11:06→14:07)
[2019-03-21] MEDS ORDERED: LIDOCAINE 1% SDV INJ 30 ML VIAL As Ordered ONE (11:06)
[2019-03-21] MEDS ORDERED: BUPIVACAINE HCL 0.25% 30 ML VIAL As Ordered ONE (11:06)
[2019-03-21] MEDS ORDERED: fentaNYL 250 MCG/5 ML INJECTION (J3010) As Ordered ONE (11:21)
[2019-03-21] MEDS ORDERED: SUGAMMADEX SODIUM 500 MG/5 ML VIAL (BRIDION) As Ordered ONE (11:21)
[2019-03-21] MEDS ORDERED: PROPOFOL 200 MG/20 ML VIAL As Ordered ONE (11:21)
[2019-03-21] MEDS ORDERED: LIDOCAINE 2% INJ 100 MG/5 ML SDV (FOR ANES.) As Ordered ONE (11:21)
[2019-03-21] MEDS ORDERED: dexameTHASONE 4 MG/ML 1ML VIAL (J1100) As Ordered ONE (11:21)
[2019-03-21] MEDS ORDERED: KETOROLAC 60 MG/2 ML VIAL (J1885) As Ordered ONE (11:21)
[2019-03-21] MEDS ORDERED: ROCURONIUM BROMIDE 50 MG/5 ML VIAL As Ordered ONE ×3 (11:21→14:49)
[2019-03-21] MEDS ORDERED: MIDAZOLAM INJ 2 MG/2 ML VIAL (J2250) As Ordered ONE (11:21)
[2019-03-21 11:41] LABS: BILIRUBIN,DIRECT 0.8 MG/DL (0.0-0.2); BILIRUBIN,TOTAL 1.4 MG/DL (0.2-1.0); TOTAL PROTEIN 8.2 GM/DL (6.4-8.2)
[2019-03-21] MEDS ORDERED: ONDANSETRON 4MG/2ML VIAL (J2405) As Ordered ONE (11:49)
[2019-03-21] MEDS ORDERED: MORPHINE 10 MG/ML 1ML VIAL (J2270) As Ordered ONE (13:32)
[2019-03-21] MEDS ORDERED: GLUCAGON FOR INJ 1 MG VIAL (J1610) As Ordered ONE (13:50)
[2019-03-21] MEDS ORDERED: BUPIVACAINE LIPOSOME/PF 1.3% 20ML VIAL (13.3MG/ML)(EXPAREL)(C9290 PER1MG) As Ordered ONE (14:54)
--- NOTE | 2019-03-21 15:16 | REP ---
INTRAOPERATIVE CHOLANGIOGRAM: Single view from intraoperative cholangiogram is performed. Contrast is injected into the biliary system. Cystic duct remnant is visualized. Common bile duct does not appear to be dilated and is fairly well opacified with no evidence of stricture or filling defect. There is free flow of contrast into the duodenum through the ampulla of Vater. Fluoroscopy time 2 minutes 17 seconds. Electronically Signed by Antonino Gonzalez MD 03/21/2019 03:57 P
[2019-03-21] MEDS ORDERED: LR 1,000 ML IV SCH ×2 (15:39→15:45)
[2019-03-21] MEDS ORDERED: PERCOCET PO (15:44)
[2019-03-21] MEDS ORDERED: fentaNYL 100 MCG/2 ML INJECTION (J3010) IV PRN (15:45)
[2019-03-21] MEDS ORDERED: METOCLOPRAMIDE INJ 10MG/2ML VIAL (J2765) IV PRN (15:45)
[2019-03-21] MEDS ORDERED: ONDANSETRON 4MG/2ML VIAL (J2405) IV PRN ×2 (15:45)
[2019-03-21] MEDS ORDERED: ACETAMINOPHEN TAB 650MG DOSE (2X325MG) PO PRN (15:45)
[2019-03-21] MEDS ORDERED: PERCOCET 5MG/325MG TAB PO PRN ×3 (15:45)
[2019-03-21] MEDS: CelecoXIB (CeleBREX) 100 MG CAP PO SCH (17:20)
[2019-03-21] MEDS ORDERED: AMPICILLIN SOD/SULBACTAM SOD 3 GM in D5W MINI-BAG PLUS 100 ML IV SCH (18:00)
[2019-03-22 02:00] VITALS: BP 121/71
[2019-03-22 06:00] VITALS: BP 119/69
[2019-03-22 06:15] LABS: ALBUMIN 3.3 GM/DL (3.2-5.2); ALT/SGPT 149 U/L (12-78); BILIRUBIN,DIRECT 0.5 MG/DL (0.0-0.2); BILIRUBIN,TOTAL 1.1 MG/DL (0.2-1.0); BLOOD UREA NITROGEN 14 MG/DL (7-18); CARBON DIOXIDE LEVEL 27 MEQ/L (21-32); CHLORIDE LEVEL 105 MEQ/L (98-107); CREATININE FOR GFR 0.79 MG/DL (0.70-1.30); GLOMERULAR FILTRATION RATE > 60.0 (>60); GLUCOSE, FASTING 107 MG/DL (70-100); POTASSIUM SERUM 4.3 MEQ/L (3.5-5.1); SODIUM LEVEL 139 MEQ/L (136-145); TOTAL PROTEIN 7.4 GM/DL (6.4-8.2)
[2019-03-22] MEDS: CelecoXIB (CeleBREX) 100 MG CAP PO SCH ×2 (09:37→22:22)
[2019-03-22 10:00] VITALS: BP 122/68
[2019-03-22 14:00] VITALS: BP 112/61
--- NOTE | 2019-03-22 21:15 | IPN ---
DATE: 03/22/2019 HISTORY: This is a patient of Dr. Banks'donta who yesterday underwent a laparoscopic cholecystectomy with intraoperative cholangiogram for cholelithiasis with recurring choledocholithiasis and biliary pancreatitis. At surgery his intraoperative cholangiogram was interpreted as showing no retained common bile duct stones. The patient appears to have done fairly well overnight. Vital signs show that he has been afebrile with a pulse in the 60s to 70s and a normal blood pressure. Intake and output shows that yesterday he had 2470 in. He had 70 mL from his abdominal drain. He has been voiding but this has not been measured. This morning he had only 10 mL from his UZIEL drain. PHYSICAL EXAMINATION: The patient is lying quietly in the hospital bed. He is alert. He denies significant pain currently. He denies any nausea or vomiting. He has been taking some liquids and was advanced to a regular diet earlier this morning. Heart exam shows a regular rhythm. The abdomen is soft. His trocar sites are dressed and he has a drain which has a minimal amount of lightly pink primarily serous fluid in the bowel. Laboratory studies today include a CPA showing a sodium of 139, potassium 4.3, chloride 105, CO2 of 27, BUN of 14, creatinine 0.8, and glucose of 107. Total bilirubin is 1.1 with a direct of 0.5 and these are slightly down from yesterday. AST is normal at 30, ALT is 149 and the alkaline phosphatase is 265 and again both the ALT and the alkaline phosphatase are reduced from yesterday's values. IMPRESSION: The patient appears to be doing fairly well now 1 day postoperative from his laparoscopic cholecystectomy and intraoperative cholangiogram. He is not having any undue tenderness. His drain has minimal nonbilious output. PLAN: The patient was encouraged to be up ambulating. We will see how he tolerates his regular diet. If he is doing well later in the day we could consider discharging him home to followup in the office with his drain. DANA
[2019-03-22 22:00] VITALS: BP 108/69
[2019-03-23 06:00] VITALS: BP 120/70
[2019-03-23 06:55] LABS: ALBUMIN 3.1 GM/DL (3.2-5.2); BILIRUBIN,DIRECT 0.4 MG/DL (0.0-0.2); BILIRUBIN,TOTAL 0.8 MG/DL (0.2-1.0); TOTAL PROTEIN 7.1 GM/DL (6.4-8.2)
[2019-03-23] MEDS: CelecoXIB (CeleBREX) 100 MG CAP PO SCH (08:46)
[2019-03-23 14:00] VITALS: BP 129/79
--- NOTE | 2019-03-23 21:08 | IPN ---
DATE: 03/23/2019 HISTORY: This is a patient of Dr. Banks who is 2 days postoperative from a laparoscopic cholecystectomy with intraoperative cholangiogram for a history of cholelithiasis with recurring choledocholithiasis and biliary pancreatitis. A small drain was placed in his right subhepatic space at the conclusion of surgery. Yesterday he was tolerating liquids and was advanced to a regular diet. His drain has had a small amount of serosanguineous fluid but no bile has been noted. VITAL SIGNS: The patient is afebrile with a pulse in the 60s and 70s and a normal blood pressure. Intake and output shows that yesterday he had 1300 in with multiple voids and only 20 mL from his drain. He had 10 mL noted out his drain this morning. PHYSICAL EXAMINATION: Patient is up ambulatory ad minerva. He is alert and oriented. He denies any significant discomfort. His abdomen is soft. The drain site is clean and there is some minimal primarily serous fluid in the suction bulb. LABORATORY STUDIES: The patient had a repeat liver profile this morning that showed a total bilirubin of 0.4 with a normal total bilirubin of 0.8. His AST was normal at 23, ALT is down to 110 and the alkaline phosphatase is 217 and this is also going down. IMPRESSION: The patient is doing very well with minimal discomfort and no evident bile in his drain. PLAN: The patient's drain will be removed. He will be discharged today to followup as scheduled in the office with Dr. Banks. He was counseled regarding limiting his activity to nonstrenuous activity for the next 2 weeks or so. He can shower tomorrow after it has been 24 hours since his drain was removed. I will not provide him with a new prescription for narcotics and recommended he continue with [id number] medications as necessary. He should call the office for any problems. DANA
--- NOTE | 2019-04-02 05:02 | ROOPDOC ---
[facility] Report Of Operation Report of Operation DATE OF PROCEDURE: 03/21/19 PREPROCEDURE DIAGNOSES: cholelithiasis with history of choledocholithiasis, biliary acute pancreatitis. POSTPROCEDURE DIAGNOSES: cholelithiasis with chronic cholecystitis. PROCEDURE: Laparoscopic Cholecystectomy with intraoperative cholangiogram. SURGEON: Yunior Banks MD FACILITY MANAGER HISTOLOGY: ANESTHESIA: General Anesthesia. ESTIMATED BLOOD LOSS: Approximately 50 mL. COMPLICATIONS: none. REMARKS: 33 M with multiple bouts of pain associated with transient elevation of his LFTs. Last Sunday had Total Bili up to 5.8 transferred to [facility] was admitted and observed with downtrending of his LFTs. He is brought in today for planned cholecystectomy with cholangiogram PROCEDURE NOTE: distended thickened gallbladder wall. GB full of small stones stacked up from midbody to neck of gb. Cholangiogram shows dilated CBD (minimal) but no filling defect noted. DESCRIPTION OF PROCEDURE: Patient was given a dose Unasyn 3 g IV preoperatively for prophylaxis. He was brought to the operating room, laid supine on the table, compression boots placed for DVT prophylaxis. General endotracheal anesthesia started. Her abdomen then prepped and draped in usual sterile fashion. Surgical timeout was performed prior to starting surgery. Entry into the abdomen done through an incision above the umbilicus. A Veress needle was inserted with a controlled fashion. CO2 insufflation started to pressure 15 mmHg. Using the same incision a 5 mm Visiport was placed under direct vision laparoscope. The area underneath the insertion site was inspected and no injury found. She was then placed in steep reverse Trendelenburg. Her right side was tilted up to further expose the gallbladder. Under direct vision a 11 mm epigastric port and 25 mm working ports placed along the right subcostal line. On entry was noted to have a very distended gallbladder, chronically fibrotic and thickened with some semblance of acute gallbladder wall edema. He had some moderate omental adhesions that I lysed using monopolar cautery attached to the laparoscopic scissors. I aspirated the contents of the bile and this was murky 30 almost brownish bile and I sent cultures from it. With the gallbladder decompression the gallbladder was able to be retracted superiorly. Maintaining traction proved difficult. The gallbladder is packed with stones from the mid body down to the neck of the gallbladder. The neck and infundibulum of the gallbladder is distended and hard to manipulate due to the presence of the stones. I approach the hepatocystic triangle with an infundibular technique with trying to retract the infundibulum of the gallbladder laterally. The hepatocystic triangle was approached and dissected using a [place] and instrument. The inflamed and enlarged hepatocystic node was identified and underneath it the cystic artery in its course was identified and dissected initially above the lymph node and then coming down to the hepatocystic triangle. The tissues between the cystic artery and duct are likewise fibrotic is carefully dissected. The cystic duct was identified coming off from the neck of the gallbladder this was circumferentially dissected. The cystic artery was identified in its usual position medially behind a small lymph node of Calot. This was similarly circumferentially dissected off surrounding adipose tissue. We continued posterior dissection proximally at the next gallbladder until a critical view of safety was achieved whereby only the previously identified duct and artery coursing through the neck the gallbladder. The junction of the gallbladder neck and cystic duct was identified and a clip was placed. The clip was not circumferential due to the thickness of the area area did a small cystotomy was created. A cholangiogram catheter was placed with difficulty but eventually was able to be threaded through the cystic duct. The balloon was inflated and a clip was temporarily used to occlude the cystic duct opening. A cholangiogram was then performed with patient repositioning and pneumoperitoneum released. 1 mg of glucagon was given to relax the sphincter fully. Initial images of the cholangiogram shows opacification of the common bile duct which was dilated but the dye went through to the duodenal sweep and this is well opacified. I initially had difficulty opacifying the proximal hepatic ducts. I partially deflated the balloon and repositioned the catheter. On the next images the proximal hepatic ducts were visualized only partially as the dye was going through to the distal bile duct. I then used a full concentration of Conray dye. Initially thought that there were floating stones at the common hepatic duct but with aspiration and further imaging this does appear that this most likely are air bubbles. Once the full biliary tree was opacified and visualized I concluded that there are no stones and there was good flow to the duodenum. No signs of bile injury At this point the cystic artery was clipped 4 times and divided. After again checking her anatomy and verifying that the previously identified cystic duct, this was also clipped. I was not satisfied with how the clip is placed in relation to the size and thickening of the cystic duct less than placed PDS Endoloops at the area.. The rest of the gallbladder was then dissected free of the gallbladder bed using Bovie cautery. There was minimal bleeding at the lateral gallbladder attachments to the liver capsule this was easily controlled with Bovie cautery. The gallbladder was then placed in an Endo Catch bag and retrieved outside through the epigastric port site. After reinsufflation and inspected the clips and noted this to be in place. No further bleeding noted. No bile leakage noted. There was much spillage of these dirty bile and also cont inued oozing of the gallbladder wall during dissection. This was irrigated. I left a Timbo-Bravo drain for postoperative monitoring at the liver bed. The abdomen was insufflated all ports were removed. The epigastric fascial defect repaired with 0 Vicryl in a mattress fashion. Rest of the skin incisions closed with 4-0 Monocryl in subcuticular fashion. Steri-Strips and gauze dressings were placed, the wound. Patient was informed they awakened, extubated and brought to recovery room stable YUNIOR BANKS MD Mar 23, 2019 13:04
== END 2019-03-23 15:30 | disposition home or self-care (01) ==
LOC: M SDC 09:30 → M MSPAV 16:21 → M SDC 03-23 15:30
PROVIDERS: ATTEND Surgery
DX: K80.10 Calculus of gallbladder with chronic cholecystitis without obstruction (principal); R06.83 Snoring; F17.210 Nicotine dependence, cigarettes, uncomplicated
CPT/HCPCS: 36415; 47562; 74300; 80053; 80076; 82248; 87070; 88304; 96374; C9290; J1100; J1610; J1885; J2250; J2270; J2405; J3010; Q9961

== ENCOUNTER 2020-10-20 10:34 | Inpatient (IN) | payer MEDICAID, OTHER ==
[~2020-10-20] VITALS: Ht 193 cm; Wt 111.9 kg
[~2020-10-20 10:34] MED LIST changes: -AMPICILLIN SOD/SULBACTAM SOD 3 GM in D5W MINI-BAG PLUS 100 ML IV ONE; -LR 1,000 ML IV ONE; +PERCOCET PO
[2020-10-20 12:22] LABS: BASO # 0.1 10^3/uL (0.0-0.2); BASO % 0.7 % (0.0-1.0); EOS # 0.1 10^3/uL (0.0-0.5); EOS % 0.8 % (0.0-3.0); HEMATOCRIT 46.7 % (42.0-52.0); HEMOGLOBIN 15.6 g/dl (13.5-17.5); LYMPH # 3.2 10^3/uL (1.5-5.0); LYMPH % 25.2 % (24.0-44.0); MEAN CORPUSCULAR HEMOGLOBIN 30.1 pg (27.0-33.0); MEAN CORPUSCULAR HGB CONC 33.4 g/dl (32.0-36.5); MEAN CORPUSCULAR VOLUME 90.2 fl (80.0-96.0); MONO # 0.9 10^3/uL (0.0-0.8); MONO % 6.8 % (2.0-8.0); NEUTROPHILS # 8.4 10^3/uL (1.5-8.5); NEUTROPHILS % 66.1 % (36.0-66.0); PLATELET COUNT, AUTOMATED 294 10^3/uL (150-450); RED BLOOD COUNT 5.18 10^6/uL (4.30-6.10); WHITE BLOOD COUNT 12.7 10^3/uL (4.0-10.0)
[2020-10-20 12:38] LABS: BLOOD UREA NITROGEN 12 MG/DL (7-18); C REACTIVE PROTEIN QUANTITATIV 1.11 MG/DL (0.00-0.30); CALCIUM LEVEL 9.5 MG/DL (8.5-10.1); CARBON DIOXIDE LEVEL 27 MEQ/L (21-32); CHLORIDE LEVEL 105 MEQ/L (98-107); CREATININE FOR GFR 0.74 MG/DL (0.70-1.30); GLOMERULAR FILTRATION RATE > 60.0 (>60); GLUCOSE, FASTING 97 MG/DL (70-100); POTASSIUM SERUM 4.8 MEQ/L (3.5-5.1); SODIUM LEVEL 139 MEQ/L (136-145)
[2020-10-20 13:10] LABS: ERYTHROCYTE SEDIMENTATION RATE 7 mm/hr (0-15)
[2020-10-20] MEDS ORDERED: ISOVUE-370 76% 100ML VIAL As Ordered ONE (14:03)
--- NOTE | 2020-10-20 15:33 | REP ---
INDICATION: L submandibular swelling. COMPARISON: None. TECHNIQUE: Helical scanning is acquired following intravenous injection of 75 mL of Isovue 370. 3 mm axial images re-formatted. Coronal and sagittal MPR images are provided. FINDINGS: Digital preliminary certified emergency vehicle technician radiographs are unremarkable. On bone window settings, no bony destructive lesion is appreciated. No mandibular or maxillary alveolar lesion is seen. Orbital margins are intact. The visualized paranasal sinuses are clear. There are carious dental a changes in a right-sided maxillary molar and in a left-sided maxillary and a left-sided mandibular molar. There is moderate to marked diffuse thickening of the platysma on the left and there is subcutaneous edema diffusely on the left side. There is phlegmonous perimandibular swelling on the left deep to the platysma but no visible fluid collection is seen to suggest an abscess. There are hypertrophied lymph nodes in the left and to a lesser extent right anterior jugular chain. There is a left submandibular lymph node which is spherical and hypertrophied as well. this has a short axis dimension of 15 mm. There is a 12 mm anterior jugular lymph node on the left. Several cyst small submental lymph nodes are noted on the left. There are scattered normal size right-sided lymph nodes. The thyroid lobes are normal and symmetric. Parotid and submandibular glands are intact. No glottic or subglottic airway lesion is seen. No tonsillar or peritonsillar lesion is seen. The visualized intracranial and intraorbital structures are unremarkable. IMPRESSION: Phlegmonous swelling in the left perimandibular soft tissues without evidence of abscess. Diffuse subcutaneous edema. Thickening of the platysma. Carious left mandibular and left maxillary molars. There is also dental caries in a right maxillary molar. <Electronically signed by Ángel Cha > 10/20/20 1741
[2020-10-20] MEDS ORDERED: AMPICILLIN SOD/SULBACTAM SOD 3 GM in D5W MINI-BAG PLUS 100 ML IV ONE (16:20)
[2020-10-20] MEDS ORDERED: dexameTHASONE 20MG/5ML VIAL (J1100 PER 1MG) IV ONE (16:20)
[2020-10-20] MEDS ORDERED: NS 1,000 ML IV ONE (17:00)
[2020-10-20] MEDS ORDERED: PERCOCET 5MG/325MG TAB PO PRN ×2 (17:10)
[2020-10-20] MEDS ORDERED: HYDROMORPHONE HCL 0.5 MG/ 0.5 ML SYRINGE (J1170 PER 1) IV ONE (17:10)
[2020-10-20] MEDS: KETOROLAC 30 MG/ML 1ML VIAL IV SCH (18:05)
[2020-10-20] MEDS: NS 1,000 ML IV SCH (18:05)
[2020-10-20 18:10] LABS: RSV AMPLIFICATION NEGATIVE (NEGATIVE)
[2020-10-20 23:10] VITALS: BP 130/76
[2020-10-21] MEDS: AMPICILLIN SOD/SULBACTAM SOD 3 GM in D5W MINI-BAG PLUS 100 ML IV SCH ×4 (00:38→18:33)
[2020-10-21] MEDS: KETOROLAC 30 MG/ML 1ML VIAL IV SCH ×4 (00:39→18:34)
[2020-10-21] MEDS: dexameTHASONE 20MG/5ML VIAL (J1100 PER 1MG) IV SCH ×4 (00:39→18:34)
[2020-10-21 06:00] VITALS: BP 118/63
[2020-10-21] MEDS: NS 1,000 ML IV SCH ×2 (06:33→12:14)
[2020-10-21 07:21] LABS: BASO % 0.2 % (0.0-1.0); HEMATOCRIT 42.8 % (42.0-52.0); HEMOGLOBIN 14.6 g/dl (13.5-17.5); LYMPH # 1.1 10^3/uL (1.5-5.0); MEAN CORPUSCULAR HEMOGLOBIN 30.6 pg (27.0-33.0); MEAN CORPUSCULAR HGB CONC 34.1 g/dl (32.0-36.5); MEAN CORPUSCULAR VOLUME 89.7 fl (80.0-96.0); MONO # 0.3 10^3/uL (0.0-0.8); MONO % 2.6 % (2.0-8.0); NEUTROPHILS # 8.7 10^3/uL (1.5-8.5); NEUTROPHILS % 85.6 % (36.0-66.0); PLATELET COUNT, AUTOMATED 302 10^3/uL (150-450); RED BLOOD COUNT 4.77 10^6/uL (4.30-6.10); WHITE BLOOD COUNT 10.2 10^3/uL (4.0-10.0)
[2020-10-21 07:52] LABS: BLOOD UREA NITROGEN 13 MG/DL (7-18); CALCIUM LEVEL 8.7 MG/DL (8.5-10.1); CARBON DIOXIDE LEVEL 25 MEQ/L (21-32); CHLORIDE LEVEL 108 MEQ/L (98-107); CHOLESTEROL LEVEL 140 MG/DL (<200); CHOLESTEROL RISK RATIO 2.745 (<5); CREATININE FOR GFR 0.59 MG/DL (0.70-1.30); GLOMERULAR FILTRATION RATE > 60.0 (>60); GLUCOSE, FASTING 122 MG/DL (70-100); HDL CHOLESTEROL 51 MG/DL (>40); LDL CHOLESTEROL 80 MG/DL (<100); NON-HDL-C 89 MG/DL; POTASSIUM SERUM 4.6 MEQ/L (3.5-5.1); SODIUM LEVEL 138 MEQ/L (136-145); THYROID STIMULATING HORMONE 0.237 uIU/ML (0.358-3.740); TRIGLYCERIDES LEVEL 43 MG/DL (<150)
[2020-10-21 08:01] LABS: HEMOGLOBIN A1c 5.2 %
--- NOTE | 2020-10-21 08:24 | HPE ---
HISTORY AND PHYSICAL DATE OF ADMISSION: 10/20/2020 CHIEF COMPLAINT: Left facial swelling, tooth pain left lower mandible. HISTORY OF PRESENT ILLNESS: A 35-year-old male with history of active smoker 5-6 cigarettes a day since the age of 22, chronic cholelithiasis, cholecystitis; status post laparoscopic cholecystectomy, who presents to the Emergency Room with a few day history of left lower tooth pain. He woke up this morning with increasing swelling, redness and tenderness of the left face involving the mandible and upper maxilla into the cheeks without fever or chills. Patient has not had any dysphagia. Denies any odynophagia, airway compromise and respiratory distress. Patient was seen at Urgent Care and sent to the Emergency Room for further evaluation. CT neck shows left melissa-mandibular soft tissue swelling without evidence of abscess, with subcutaneous edema, thickening of the platysma and carious left mandibular and left maxillary molars, dental caries in the right maxillary molar. Per oral maxillofacial surgeon, patient should be admitted with I.V. antibiotics, given I.V. Unasyn and Decadron in the Emergency Room. Hospitalist was asked to admit the patient. He otherwise denies any weight changes, fever, chills, nausea, vomiting, abdominal pain, dysphagia, odynophagia, aspiration, changes in vision, changes in appetite, changes in bowel habits, depression, anxiety, chest pain, pressure, tightness, shortness of breath, palpitations, lightheadedness, polyphagia, polydipsia, bilateral upper or lower extremity weakness, paresthesias, rashes, joint pains or muscles aches. All other systems otherwise negative. PAST MEDICAL HISTORY: Chronic cholelithiasis, chronic cholecystitis. PAST SURGICAL HISTORY: Laparoscopic cholecystectomy. ALLERGIES: No known drug allergies. SOCIAL HISTORY: Patient smokes 5-6 cigarettes a day. Social alcohol use of 1-2 beers a week. Denies recreational drug use. Patient works as a service cleaner. FAMILY HISTORY: Mother and father are alive in their 60's. Mother with diabetes and hypertension. REVIEW OF SYSTEMS: 10-point system negative aside from positive findings on HPI. PHYSICAL EXAMINATION: VITALS: Temperature 98.2, pulse 76, respiratory rate 16, blood pressure 141/89, 100% on room air. GENERAL: Awake, alert and oriented x3. No stridor on exam. Patient is in no distress. HEENT: No pallor or icterus. There is some erythema, significant swelling in the left melissa-mandibular area with soft tissue edema without any crepitus, slightly tender. Dental caries noted in the left maxillary teeth with no dental abscess noted, measures about 7 x 4.5 cm on the left face. LUNGS: Clear to auscultation. No wheezing, rales or rhonchi. HEART: S1, S2, sinus rhythm. No murmurs, rubs or gallops. ABDOMEN: Soft, nontender, non-distended. Positive bowel sounds. EXTREMITIES: No cyanosis, clubbing or pitting edema. LABORATORY DATA: White count 12.7, hemoglobin 15, hematocrit 46, platelets 294,000. Sed rate 7. Sodium 139, potassium 4.8, chloride 105, bicarb 27, BUN 12, creatinine 0.74, glucose 97. CRP 1.11. Coronavirus is pending. Respiratory panel pending. Two sets of blood cultures are pending. IMAGING: CT neck with contrast in the left melissa-mandibular soft tissue without abscess, diffuse subcutaneous edema, thickening of the platysma, caries left mandibular, left maxillary molars. Dental caries in the right maxillary molar. ASSESSMENT AND PLAN: This is a 35-year-old male with no past medical history aside from chronic cholecystitis due to cholelithiasis; status post laparoscopic cholecystectomy, an active smoker 5-6 cigarettes a day, who presents to the Emergency Room with acute onset this morning of left facial redness, swelling and tenderness after several day history of left mandibular dental pain. Patient is being admitted for left facial cellulitis most likely secondary to dental caries. Patient will be admitted as an inpatient for two-midnight, given Unasyn 3 grams I.V. every 6 hours and Bacid one tablet with meals and HS. Soft mechanical diet. Decadron 10 I.V. every 6 hours and 1-2 tablets Percocet every 6 hours for moderate to severe pain and Toradol 30 mg I.V. with normal saline I.V. bolus and maintenance therapy. Active smoker: Tobacco cessation counseling. Obesity: Check A1C and lipid panel in the morning. DVT: Prophylaxis with compression stockings. MTDD
[2020-10-21 09:02] LABS: T UPTAKE 35 % (33-40); THYROXINE (T4) 6.5 UG/DL (4.5-12.0)
--- NOTE | 2020-10-21 11:16 | IPNPDOC ---
Date Seen The patient was seen on 10/21/20. Progress Note . SUBJECTIVE: Patient denies any fever, chills, says his pain is under control. No odynophagia. Respiratory distress overnight Able to eat without difficulty. No other issues per nursing overnight PHYSICAL EXAMINATION: VITALS: See below GENERAL: Awake, alert and oriented x3. No stridor on exam. Patient is in no respiratory distress HEENT: No pallor or icterus., No erythema, improved swelling in the left melissa-mandibular area with soft tissue edema without any crepitus, , Decreased tenderness. , No induration Dental caries noted in the left maxillary teeth with no dental abscess noted, LUNGS: Clear to auscultation. No wheezing, rales or rhonchi. HEART: S1, S2, sinus rhythm. No murmurs, rubs or gallops. ABDOMEN: Soft, nontender, non-distended. Positive bowel sounds. EXTREMITIES: No cyanosis, clubbing or pitting edema. ADMISSION LABORATORY DATA: White count 12.7, hemoglobin 15, hematocrit 46, platelets 294,000. Sed rate 7. Sodium 139, potassium 4.8, chloride 105, bicarb 27, BUN 12, creatinine 0.74, glucose 97. CRP 1.11. Coronavirus is pending. Respiratory panel pending. Two sets of blood cultures are pending. Laboratory data: See below IMAGING: CT neck with contrast in the left melissa-mandibular soft tissue without abscess, diffuse subcutaneous edema, thickening of the platysma, caries left mandibular, left maxillary molars. Dental caries in the right maxillary molar. ASSESSMENT AND PLAN: A 35-year-old male with history of active smoker 5-6 cigarettes a day since the age of 22, chronic cholelithiasis, cholecystitis; status post laparoscopic cholecystectomy, who presents to the Emergency Room with a few day history of left lower tooth pain. He woke up this morning with increasing swelling, redness and tenderness of the left face involving the mandible and upper maxilla into the cheeks without fever or chills. Patient has not had any dysphagia. Denies any odynophagia, airway compromise and respiratory distress. Patient was seen at Urgent Care and sent to the Emergency Room for further evaluation. CT neck shows left melissa-mandibular soft tissue swelling without evidence of abscess, with subcutaneous edema, thickening of the platysma and carious left mandibular and left maxillary molars, dental caries in the right maxillary molar. Per oral maxillofacial surgeon, patient should be admitted with I.V. antibiotics, given I.V. Unasyn and Decadron in the Emergency Room. Hospitalist was asked to admit the patient. He otherwise denies any weight changes, fever, chills, nausea, vomiting, abdominal pain, dysphagia, odynophagia, aspiration, changes in vision, changes in appetite, changes in bowel habits, depression, anxiety, chest pain, pressure, tightness, shortness of breath, palpitations, lightheadedness, polyphagia, polydipsia, bilateral upper or lower extremity weakness, paresthesias, rashes, joint pains or muscles aches. All other systems otherwise negative. left facial cellulitis most likely secondary to dental caries. -Day #2 Unasyn 3 grams I.V. every 6 hours and Bacid one tablet with meals and HS. Soft mechanical diet. Decadron 10 I.V. every 6 hours and 1-2 tablets Percocet every 6 hours for moderate to severe pain and Toradol 30 mg I.V. with normal saline I.V. bolus and maintenance therapy. [facility] [place], Dr. Vaughn Consulted. Active smoker: Tobacco cessation counseling. Obesity: Check A1C and lipid panel in the morning. DVT: Prophylaxis with compression stockings. Disposition discharge in the morning. If clinically stable and improved. DD: LUIS ALBERTO CHÁVEZ MD 10/20/20 1750 VS, I&O, 24H, [place] Vital Signs/I&O Vital Signs Date Time Temp Pulse Resp B/P (MAP) Pulse Ox O2 Delivery O2 Flow Rate FiO2 10/21/20 08:16 20 Room Air 10/21/20 06:00 98.6 75 118/63 (81) 96 I&O- Last 24 Hours up to 6 AM 10/21/20 06:00 Intake Total 560 ml Output Total 0 ml Balance 560 ml Laboratory Data 24H LABS Laboratory Tests 2 10/20/20 12:02: Immature Granulocyte % (Auto) 0.4, Neutrophils (%) (Auto) 66.1H, Lymphocytes (%) (Auto) 25.2, Monocytes (%) (Auto) 6.8, Eosinophils (%) (Auto) 0.8, Basophils (%) (Auto) 0.7, Neutrophils # (Auto) 8.4, Lymphocytes # (Auto) 3.2, Monocytes # (Auto) 0.9H, Eosinophils # (Auto) 0.1, Basophils # (Auto) 0.1, Nucleated Red Blood Cells % (auto) 0.0, Erythrocyte Sedimentation Rate 7, Anion Gap 7L, Glomerular Filtration Rate > 60.0, Calcium Level 9.5, C-Reactive Protein, Quantitative 1.11H 10/20/20 17:03: Coronavirus (COVID-19)(PCR) NEGATIVE, Influenza Type A (RT-PCR) NEGATIVE, Influenza Type B (RT-PCR) NEGATIVE, Respiratory Syncytial Virus (PCR) NEGATIVE 10/21/20 06:37: Immature Granulocyte % (Auto) 0.6, Neutrophils (%) (Auto) 85.6H, Lymphocytes (%) (Auto) 11.0L, Monocytes (%) (Auto) 2.6, Eosinophils (%) (Auto) 0.0, Basophils (%) (Auto) 0.2, Neutrophils # (Auto) 8.7H, Lymphocytes # (Auto) 1.1L, Monocytes # (Auto) 0.3, Eosinophils # (Auto) 0.0, Basophils # (Auto) 0.0, Nucleated Red Blood Cells % (auto) 0.0, Anion Gap 5L, Glomerular Filtration Rate > 60.0, Calcium Level 8.7, Estimated Mean Plasma Glucose 103, Hemoglobin A1c 5.2, Triglycerides Level 43, Total Cholesterol 140, LDL Cholesterol 80, Non-HDL Cholesterol (LDL + VLDL) 89, Total HDL Cholesterol 51, Cholesterol/HDL Ratio 2.745, Thyroid Stimulating Hormone (TSH) 0.237L, Thyroxine (T4) 6.5, Triiodothyronine (T3) Uptake 35 CBC/BMP Laboratory Tests 10/20/20 12:02 10/21/20 06:37 Microbiology Microbiology 10/20/20 Blood Culture, Received Pending 10/20/20 Blood Culture, Received Pending LUIS ALBERTO CHÁVEZ MD Oct 21, 2020 11:16
[2020-10-21 14:00] VITALS: BP 127/79
[2020-10-21] MEDS ORDERED: BACI1CAP PO (17:09)
[2020-10-21] MEDS ORDERED: AUGM875T28 PO (17:09)
[2020-10-21 19:44] VITALS: BP 145/70
[2020-10-22] MEDS: AMPICILLIN SOD/SULBACTAM SOD 3 GM in D5W MINI-BAG PLUS 100 ML IV SCH ×3 (00:51→11:09)
[2020-10-22] MEDS: KETOROLAC 30 MG/ML 1ML VIAL IV SCH ×2 (00:52→05:49)
[2020-10-22] MEDS: dexameTHASONE 20MG/5ML VIAL (J1100 PER 1MG) IV SCH ×2 (01:25→05:48)
[2020-10-22 06:00] VITALS: BP 142/78
[2020-10-22 06:42] LABS: BASO % 0.1 % (0.0-1.0); HEMOGLOBIN 13.9 g/dl (13.5-17.5); LYMPH # 1.3 10^3/uL (1.5-5.0); LYMPH % 7.3 % (24.0-44.0); MEAN CORPUSCULAR HEMOGLOBIN 30.3 pg (27.0-33.0); MEAN CORPUSCULAR HGB CONC 33.9 g/dl (32.0-36.5); MEAN CORPUSCULAR VOLUME 89.5 fl (80.0-96.0); MONO # 0.6 10^3/uL (0.0-0.8); MONO % 3.4 % (2.0-8.0); NEUTROPHILS # 15.7 10^3/uL (1.5-8.5); PLATELET COUNT, AUTOMATED 301 10^3/uL (150-450); RED BLOOD COUNT 4.58 10^6/uL (4.30-6.10); WHITE BLOOD COUNT 17.9 10^3/uL (4.0-10.0)
[2020-10-22 07:01] LABS: BLOOD UREA NITROGEN 18 MG/DL (7-18); CALCIUM LEVEL 8.2 MG/DL (8.5-10.1); CARBON DIOXIDE LEVEL 25 MEQ/L (21-32); CHLORIDE LEVEL 110 MEQ/L (98-107); CREATININE FOR GFR 0.61 MG/DL (0.70-1.30); GLOMERULAR FILTRATION RATE > 60.0 (>60); GLUCOSE, FASTING 118 MG/DL (70-100); POTASSIUM SERUM 4.5 MEQ/L (3.5-5.1); SODIUM LEVEL 140 MEQ/L (136-145)
--- NOTE | 2020-10-22 07:33 | DSES ---
DISCHARGE SUMMARY DATE OF ADMISSION: 10/20/2020 DATE OF DISCHARGE: 10/22/2020 PRIMARY DISCHARGE DIAGNOSES: 1. Left facial cellulitis. 2. Dental caries. 3. Phlegmon in the left mandible without dental abscess. 4. Consulted by telephone oral maxillofacial surgeon, Dr. Vaughn. DISCHARGE INSTRUCTIONS: The patient is to complete antibiotics as an outpatient and outpatient follow-up with oral maxillofacial surgeon, Dr. Vaughn, and primary care physician within five days of discharge. DISCHARGE MEDICATIONS: 1. Augmentin 875 p.o. b.i.d. for 7 days. 2. Bacid one tablet with meals for 7 days. HOSPITAL COURSE: This is a 35-year-old male with a history of cholelithiasis and chronic cholecystitis status post laparoscopic cholecystectomy who complained of dental caries in the left mandible and upper maxilla without fever or chills. Awakened on the day of presentation with swelling, redness, and tenderness of the left side of the face in the mandibular area. The patient had not taken any medications or antibiotics as an outpatient. He presented to urgent care and was sent to the emergency room for further evaluation. CT showed a perimandibular soft tissue swelling without abscess, subcutaneous edema with thickening of the platysma, and caries in the left mandibular and left maxillary molars. Per oral maxillofacial surgeon, Dr. Vaughn, the patient should be admitted with IV antibiotics and IV Decadron. The patient was admitted and started on intravenous Unasyn q. 6 hourly and Decadron q. 6 hourly. The patient had no odynophagia, dysphagia, or respiratory distress. His white count on admission was 12.7 and increased to 17.9 due to Decadron. The patient had no fevers with resolution of the erythema, swelling of the left face, and no other issues during this admission. Blood cultures remained negative after 24 hours. DISCHARGE PHYSICAL EXAMINATION: VITAL SIGNS: Temperature 98.1, pulse 61, respiratory rate 20, blood pressure 142/78, 95% on room air. GENERAL: Awake, alert, and oriented to person, place, and time. No stridor on exam. No respiratory distress. HEENT: No edema. Erythema of the left face, which has resolved. There remains to be a left-sided cervical lymphadenopathy, which is improved from admission. LUNGS: Clear to auscultation. No wheezing, rales, or rhonchi. HEART: S1, S2. Sinus rhythm. ABDOMEN: Soft, nontender, and nondistended. Positive bowel sounds. EXTREMITIES: No cyanosis, clubbing, or pitting edema. DIAGNOSTIC STUDIES: Laboratory data, imaging studies, and microbiology please see the chart. Time spent on discharge 30 minutes.
== END 2020-10-22 12:30 | disposition home or self-care (01) | DRG 383 ==
LOC: M ED 10:34 → M ED INP 17:00 → M MS5PR 23:00
PROVIDERS: ADMIT General Practice; ATTEND General Practice
DX: L03.211 Cellulitis of face (principal); E66.9 Obesity, unspecified; K02.9 Dental caries, unspecified; F17.210 Nicotine dependence, cigarettes, uncomplicated

== ENCOUNTER → 2023-03-20 | Outpatient (CLI) | payer OTHER ==
[~2023-03-20] MED LIST changes: +AUGM875T28 PO; +BACI1CAP PO; -IBUP200T45 PO; +IBUP200T46 PO
[2023-03-20 12:47] LABS: BASO # 0.1 10^3/uL (0.0-0.2); BASO % 1.3 % (0.0-1.0); EOS # 0.1 10^3/uL (0.0-0.5); EOS % 1.3 % (0.0-3.0); HEMATOCRIT 44.6 % (42.0-52.0); HEMOGLOBIN 15.3 g/dl (13.5-17.5); LYMPH # 2.9 10^3/uL (1.5-5.0); LYMPH % 34.3 % (24.0-44.0); MEAN CORPUSCULAR HEMOGLOBIN 30.4 pg (27.0-33.0); MEAN CORPUSCULAR HGB CONC 34.3 g/dl (32.0-36.5); MEAN CORPUSCULAR VOLUME 88.7 fl (80.0-96.0); MONO # 0.5 10^3/uL (0.0-0.8); MONO % 5.6 % (2.0-8.0); NEUTROPHILS # 4.9 10^3/uL (1.5-8.5); NEUTROPHILS % 57.3 % (36.0-66.0); PLATELET COUNT, AUTOMATED 341 10^3/uL (150-450); RED BLOOD COUNT 5.03 10^6/uL (4.30-6.10); WHITE BLOOD COUNT 8.6 10^3/uL (4.0-10.0)
[2023-03-20 13:09] LABS: CK-MB VALUE MASS < 1.0 NG/ML (<3.6)
[2023-03-20 13:11] LABS: ALBUMIN 4.2 G/DL (3.2-5.2); ALKALINE PHOSPHATASE 83 U/L (46-116); ALT/SGPT 58 U/L (7.0-40); AST/SGOT 29 U/L (<34); BILIRUBIN,TOTAL 0.6 MG/DL (0.3-1.2); BLOOD UREA NITROGEN 14 MG/DL (9-23); CALCIUM LEVEL 9.7 MG/DL (8.5-10.1); CARBON DIOXIDE LEVEL 28 MMOL/L (20-31); CHLORIDE LEVEL 108 MMOL/L (98-107); CHOLESTEROL LEVEL 142 MG/DL (<200); CHOLESTEROL RISK RATIO 3.59 (<5); CPK CREATINE PHOSPHOKINASE 206 U/L (46-171); GLOMERULAR FILTRATION RATE > 60.0 (>60); GLUCOSE, FASTING 91 MG/DL (60-100); HDL CHOLESTEROL 39.5 MG/DL (>40); LDL CHOLESTEROL 83.5 MG/DL (<100); MB/CK RELATIVE INDEX 0.48 (< OR =4); NON-HDL-C 102.5 MG/DL; SODIUM LEVEL 143 MMOL/L (136-145); TOTAL PROTEIN 7.5 G/DL (5.7-8.2); TRIGLYCERIDES LEVEL 95 MG/DL (<150)
== END ==
LOC: M WUC 11:19
PROVIDERS: ATTEND Physician Assistant
DX: R07.9 Chest pain, unspecified (principal); Z72.0 Tobacco use